=== PATIENT | female | born 1965 | race African-American/Black ===

== ENCOUNTER 2019-10-19 07:56 | Inpatient (IN) | payer BC ==
[~2019-10-19] VITALS: Ht 172.7 cm; Wt 144.4 kg
[2019-10-19 14:39] LABS: EOSINOPHILS % 0.9 % (0.0-5.0); HEMATOCRIT. 43.9 % (36.0-48.0); HEMOGLOBIN. 14.4 g/dL (12.0-16.0); LYMPHOCYTES % 16.6 % (20.0-50.0); MEAN CORPUSCULAR HEMOGLOBIN 28.3 pg (28.0-32.0); MEAN PLATELET VOLUME 8.9 fl (7.4-10.4); MONOCYTES % 4.9 % (2.0-8.0); NEUTROPHILS % 76.6 % (40.0-76.0); PLATELET 282 x1000/uL (130-400); RED BLOOD CELL COUNT 5.11 mill/uL (4.2-5.4); RED CELL DISTRIBUTION WIDTH 16.7 % (11.6-14.6)
[2019-10-19 14:42] LABS: CHLORIDE 106 mEq/L (98-107)
[2019-10-19 14:44] LABS: D-DIMER 0.84 mg/L FEU (<0.50); INR 1.1; PROTHROMBIN TIME 11.1 sec (9.6-11.0)
[2019-10-19] MEDS ORDERED: HYDRALAZINE 20MG/ML VIAL IV ONE ×2 (20:00→22:30)
[2019-10-19] MEDS ORDERED: ASPIRIN 81MG EC TABLET PO ONE (20:00)
[2019-10-19] MEDS ORDERED: IOHEXOL-300 100 ML BOTTLE ONE (22:31)
[2019-10-19] MEDS ORDERED: TRAMADOL 50MG TABLET PO PRN (23:15)
[2019-10-19] MEDS ORDERED: MAGNESIUM/ALUMINUM HYDROXIDE/SIMETHICONE 30ML UDC PO PRN (23:15)
[2019-10-19] MEDS ORDERED: CLONIDINE 0.2MG TABLET PO PRN (23:15)
[2019-10-19] MEDS ORDERED: LORAZEPAM 0.5MG TABLET PO PRN (23:15)
[2019-10-19] MEDS ORDERED: DIPHENHYDRAMINE 50MG/ML VIAL IV PRN (23:15)
[2019-10-19] MEDS ORDERED: GUAIFENESIN 200MG/10ML SUGAR FREE UDC PO PRN (23:15)
[2019-10-19] MEDS ORDERED: DOCUSATE SODIUM 100MG CAPSULE PO PRN (23:15)
[2019-10-19] MEDS ORDERED: ZOLPIDEM TARTRATE 5MG TABLET PO PRN (23:15)
[2019-10-19] MEDS ORDERED: ONDANSETRON HCL 4MG/2ML INJ IV PRN (23:15)
[2019-10-19] MEDS ORDERED: NA PHOS,M-B/NA PHOS,DI-BA ENEMA 118ML PR PRN (23:15)
[2019-10-19] MEDS ORDERED: KETOROLAC 15MG/ML VIAL IV PRN (23:15)
[2019-10-19] MEDS ORDERED: NITROGLYCERIN 0.4MG TABLET SL SL PRN (23:15)
[2019-10-19] MEDS ORDERED: IPRATROPIUM/ALBUTEROL 0.5-3(2.5)MG/3ML NEB NEB PRN (23:15)
[2019-10-19] MEDS ORDERED: ACETAMINOPHEN 325MG TABLET PO PRN (23:15)
[2019-10-20] VITALS (7 sets, daily range): BP systolic 117–170; BP diastolic 48–84
[2019-10-20] MEDS ORDERED: ONDANSETRON HCL 4MG/2ML INJ IV ONE (01:15)
[2019-10-20] MEDS: HYDRALAZINE HCL 50MG TABLET PO SCH ×3 (05:06→21:08)
[2019-10-20] MEDS: METOPROLOL TARTRATE 25MG TABLET PO SCH ×2 (08:19→20:57)
[2019-10-20] MEDS: ASPIRIN 325MG EC TABLET PO SCH (08:19)
[2019-10-20] MEDS: LISINOPRIL 20MG TABLET PO SCH ×2 (08:19→20:56)
[2019-10-20] MEDS: ENOXAPARIN 30MG/0.3ML SYR SUBCUT SCH ×2 (08:19→20:57)
[2019-10-20] MEDS: FAMOTIDINE 40MG TABLET PO SCH ×2 (09:00→20:56)
[2019-10-20] MEDS: AMLODIPINE 10MG TABLET PO SCH (09:00)
[2019-10-20 11:57] LABS: *AMPHETAMINES SCREEN URINE NEGATIVE (NEGATIVE); *BARBITURATES SCREEN URINE NEGATIVE (NEGATIVE); *BENZODIAZEPINES SCREEN URINE NEGATIVE (NEGATIVE); *COCAINE SCREEN URINE NEGATIVE (NEGATIVE)
[2019-10-20 11:58] LABS: CANNABINOID URINE SCREEN NEGATIVE (NEGATIVE); METHADONE URINE SCREEN NEGATIVE (NEGATIVE); OPIATES URINE SCREEN NEGATIVE (NEGATIVE); PHENCYCLIDINE URINE SCREEN NEGATIVE (NEGATIVE)
[2019-10-20] MEDS: FUROSEMIDE 40MG/4ML VIAL IVP SCH (12:39)
[2019-10-20] MEDS: LOSARTAN POTASSIUM 25 MG TABLET PO SCH (12:39)
[2019-10-20 16:47] LABS: CREATINE KINASE MB FRACTION 1.9 ng/mL (0.5-3.6)
[2019-10-21 00:43] VITALS: BP 124/62
[2019-10-21 04:00] VITALS: BP 137/75
[2019-10-21] MEDS: HYDRALAZINE HCL 50MG TABLET PO SCH ×3 (06:09→20:52)
[2019-10-21 06:38] LABS: EOSINOPHILS % 3.2 % (0.0-5.0); HEMATOCRIT. 38.6 % (36.0-48.0); HEMOGLOBIN. 12.6 g/dL (12.0-16.0); LYMPHOCYTES % 25.8 % (20.0-50.0); MEAN CORPUSCULAR VOLUME 86.2 fL (81.0-99.0); MEAN PLATELET VOLUME 8.7 fl (7.4-10.4); MONOCYTES % 7.6 % (2.0-8.0); NEUTROPHILS % 62.4 % (40.0-76.0); PLATELET 248 x1000/uL (130-400); RED BLOOD CELL COUNT 4.48 mill/uL (4.2-5.4); RED CELL DISTRIBUTION WIDTH 16.8 % (11.6-14.6)
[2019-10-21 06:39] LABS: CHLORIDE 106 mEq/L (98-107)
[2019-10-21 06:48] LABS: CREATINE KINASE 138 IU/L (26-192)
[2019-10-21 07:13] LABS: CREATINE KINASE MB FRACTION 1.9 ng/mL (0.5-3.6)
[2019-10-21 08:00] VITALS: BP 134/59
[2019-10-21] MEDS: ASPIRIN 325MG EC TABLET PO SCH (08:37)
[2019-10-21] MEDS: LISINOPRIL 20MG TABLET PO SCH (08:38)
[2019-10-21] MEDS: LOSARTAN POTASSIUM 25 MG TABLET PO SCH (08:38)
[2019-10-21] MEDS: AMLODIPINE 10MG TABLET PO SCH (08:38)
[2019-10-21] MEDS: METOPROLOL TARTRATE 25MG TABLET PO SCH ×2 (08:39→20:53)
[2019-10-21] MEDS: FUROSEMIDE 40MG/4ML VIAL IVP SCH (08:39)
[2019-10-21] MEDS: FAMOTIDINE 40MG TABLET PO SCH ×2 (08:39→20:53)
[2019-10-21] MEDS: ENOXAPARIN 30MG/0.3ML SYR SUBCUT SCH (08:40)
[2019-10-21 13:54] VITALS: BP 156/73
[2019-10-21] MEDS ORDERED: REGADENOSON 0.4 MG/5 ML IV NR (15:00)
[2019-10-21 15:23] LABS: CLARITY URINE CLEAR (CLEAR); COLOR URINE YELLOW (YELLOW); KETONES URINE NEGATIVE (NEGATIVE); LEUKOCYTE ESTERASE URINE NEGATIVE (NEGATIVE); NITRITE URINE NEGATIVE (NEGATIVE); OCCULT BLOOD URINE NEGATIVE (NEGATIVE); PROTEIN URINE NEGATIVE (NEGATIVE); SPECIFIC GRAVITY URINE 1.007 (1.005-1.030); UROBILINOGEN URINE 0.2 E.U./dL (0.2-1.0)
[2019-10-21 15:36] LABS: *AMPHETAMINES SCREEN URINE NEGATIVE (NEGATIVE); *BARBITURATES SCREEN URINE NEGATIVE (NEGATIVE); *BENZODIAZEPINES SCREEN URINE NEGATIVE (NEGATIVE); *COCAINE SCREEN URINE NEGATIVE (NEGATIVE); METHADONE URINE SCREEN NEGATIVE (NEGATIVE)
[2019-10-21 15:38] LABS: OPIATES URINE SCREEN NEGATIVE (NEGATIVE)
[2019-10-21 15:40] LABS: CANNABINOID URINE SCREEN NEGATIVE (NEGATIVE)
[2019-10-21 15:41] LABS: PHENCYCLIDINE URINE SCREEN NEGATIVE (NEGATIVE)
[2019-10-21 16:52] VITALS: BP 158/80
[2019-10-21 20:00] VITALS: BP 156/70
[2019-10-22] VITALS: BP 133/62
[2019-10-22 04:00] VITALS: BP 125/54
[2019-10-22] MEDS: HYDRALAZINE HCL 50MG TABLET PO SCH (06:33)
[2019-10-22 08:00] VITALS: BP 148/69
[2019-10-22] MEDS: ASPIRIN 325MG EC TABLET PO SCH (10:29)
[2019-10-22] MEDS: LOSARTAN POTASSIUM 25 MG TABLET PO SCH (10:29)
[2019-10-22] MEDS: FAMOTIDINE 40MG TABLET PO SCH (10:30)
[2019-10-22] MEDS: METOPROLOL TARTRATE 25MG TABLET PO SCH (10:30)
[2019-10-22] MEDS: AMLODIPINE 10MG TABLET PO SCH (10:31)
[2019-10-22 12:00] VITALS: BP 161/94
[2019-10-22 12:54] VITALS: BP 128/78
== END 2019-10-22 16:15 | disposition home or self-care (01) | DRG 305 ==
LOC: ER 07:56 → 6WST 22:34 → SUPCPDRO 23:12 → ENRESERV 10-20 03:04
PROVIDERS: ADMIT Internal Medicine; ATTEND Internal Medicine
DX: I16.1 Hypertensive emergency (principal); Z68.42 Body mass index [BMI] 45.0-49.9, adult; I11.0 Hypertensive heart disease with heart failure; R07.89 Other chest pain; E66.01 Morbid (severe) obesity due to excess calories; K76.0 Fatty (change of) liver, not elsewhere classified; I50.9 Heart failure, unspecified; Z79.899 Other long term (current) drug therapy
CPT/HCPCS: 36415; 71045; 71275; 78452; 80053; 80061; 80305; 81003; 82550; 82553; 83036; 83735; 83880; 84484; 85025; 85379; 93005; 93017; 93306; 93970; 96374; 96375; 96376; 99291; A9500; J0360; J1650; J1940; J2405; Q9967